=== PATIENT | male | born 1960 | race Caucasian/White ===

== ENCOUNTER → 2021-01-16 | Outpatient (CLI) | payer BC, OTHER ==
[2015-05-31 05:47] VITALS: BP 114/70
[~2021-01-16] MED LIST: CARV25TA2 PO; FISH1CAP PO; GINK30CA PO; MULT-460 PO; POTA20TA4 PO; TRIA1TAB3 PO
--- NOTE | 2021-01-16 15:57 | KCIC ---
EXAM: CT coronary artery calcium screening; radiologist over read. HISTORY: Mixed hyperlipidemia. TECHNIQUE: Computed tomographic images of the chest were obtained without contrast. Multiplanar refor matting was performed. *One or more of the following individualized dose reduction techniques were utilized for this examina tion: 1. Automated exposure control. 2. Adjustment of the mA and/or kV according to patient size. 3. Use of iterative reconstruction technique. COMPARISON: None. FINDINGS: There is calcified atherosclerotic plaque involving the coronary arteries. The heart is nor mal in size. The aorta is normal in caliber. There is no lymphadenopathy. There is no infiltrate or p leural effusion. There is no suspicious pulmonary nodule. There is right middle lobe and lingular ple ural parenchymal scarring. There are healed rib fractures. There is no acute finding involving the up per abdomen. Coronary artery calcium score: Left main artery - 0 Left anterior descending - 630.9 Left circumflex - 38.9 Right coronary artery - 53.0 Posterior descending artery - 0 TOTAL = 722.8 IMPRESSION: 1. Calcified atherosclerotic plaque involving the coronary arteries. The coronary artery calcium scor e is 722.8. There is a large amount of atherosclerotic plaque. 2. No significant incidental thoracic finding. Electronically signed by: Erna Shelton MD (01/16/2021 3:54 PM) [id number]
== END ==
LOC: KCIC CT 14:48
PROVIDERS: ATTEND Specialist
DX: I25.10 Atherosclerotic heart disease of native coronary artery without angina pectoris (principal); E78.2 Mixed hyperlipidemia; J98.4 Other disorders of lung; S22.39XD Fracture of one rib, unspecified side, subsequent encounter for fracture with routine healing; X58.XXXD Exposure to other specified factors, subsequent encounter
CPT/HCPCS: 75571